=== PATIENT | male | born 1995 | race Two or more races ===

== ENCOUNTER 2021-09-28 12:58 | Emergency (ER) | payer MEDICAID, OTHER ==
--- NOTE | 2021-09-28 13:37 | NUR ---
CALLED TO TRIAGE NO RESPONSE.
--- NOTE | 2021-09-28 13:47 | NUR ---
CALLED TO TRIAGE NO RESPONSE.
--- NOTE | 2021-09-28 13:48 | NUR ---
Multiple Calls No response- Eloped
== END 2021-09-28 13:49 | disposition home or self-care (01) ==
LOC: ER 13:00
DX: Z53.21 Procedure and treatment not carried out due to patient leaving prior to being seen by health care provider (principal)